=== PATIENT | male | born 1960 | race Caucasian/White ===

== ENCOUNTER → 2018-02-01 08:21 | Outpatient (CLI) | payer MEDICAID, SELFPAY ==
--- NOTE | 2018-02-01 08:32 | RAD_ITS ---
STUDY: X-RAY - ESOPHAGUS (BARIUM SWALLOW) WITH FLUOROSCOPY REASON FOR EXAM: Male, 57 years old. Dysphasia and cough. TECHNIQUE: 15 view(s) of the esophagus were obtained following swallowing of barium. FLUOROSCOPY TIME (if supplied): (0:37) minutes/seconds COMPARISON: None. FINDINGS: There is no demonstrated esophageal foreign body. There is no demonstrated stricture or mucosal abnormality. Normal gastroesophageal junction, without a demonstrated hiatal hernia. The patient ingested a 12 mm tablet of barium without any difficulty. Normal visualized aortic arch and descending thoracic aorta. Normal visualized pulmonary parenchyma. Prior fusion in the lower cervical spine. RAD/Esophagus Only IMPRESSION: Normal plain film x-ray examination (barium swallow) of the esophagus. Electronically Signed: Tarun Adams MD at 8:59 EDT Tel [phone], Service support ,
== END ==
PROVIDERS: Family Provider Internal Medicine; PCP Internal Medicine; Visit Provider Otolaryngology Otolaryngology/Facial Plastic Surgery
DX: R13.10 Dysphagia, unspecified (principal); R05 Cough
CPT/HCPCS: 74220

== ENCOUNTER 2021-07-29 12:44 | Outpatient (CLI) | payer MEDICAID, SELFPAY ==
[2021-07-29 13:01] VITALS: BP 178/100; PULSE 76; RESP 16; TEMP 36.5; O2SAT 98; BMI 30.8
[2021-07-29] MEDS: 0.9% Saline Lock 10 ML Syringe IV (13:04)
[2021-07-29 13:32] VITALS: BP 128/85; PULSE 61; RESP 16; TEMP 36.9; O2SAT 98
[2021-07-29 14:19] VITALS: BP 128/85; PULSE 61; RESP 16; TEMP 36.9; O2SAT 98
== END 2021-07-29 23:59 | disposition home or self-care (01) ==
LOC: MS3OUT 12:44 → MS3 12:45
PROVIDERS: PCP Internal Medicine; Referring Provider Nurse Practitioner Adult Health; Visit Provider Nurse Practitioner Adult Health
DX: U07.1 COVID-19 (principal)
CPT/HCPCS: J7050; M0243; A4216; Q0244